=== PATIENT | female | born 1965 | race American Indian/Alaskan Native ===

== ENCOUNTER 2021-02-19 09:49 | Outpatient (CLI) | payer OTHER ==
--- NOTE | 2021-02-19 11:36 | XRay Report ---
LUMBAR SPINE 3 VIEWS INDICATION / CLINICAL INFORMATION: BACK PAIN. COMPARISON: None available. FINDINGS: VERTEBRAE: No acute fracture. No significant malalignment. DISC SPACES / FACET JOINTS:Mild degenerative disc disease of L5-S1. PARASPINAL SOFT TISSUES:No significant abnormality. ADDITIONAL FINDINGS: Incidentally noted calcification within the pelvis, likely representing a degene rating fibroid. Signer Name: Roque Delgadillo DO Signed: 02/19/2021 11:31 AM Workstation Name: [id number]
--- NOTE | 2021-02-19 11:37 | XRay Report ---
XR hip 2-3V LT INDICATION / CLINICAL INFORMATION: LEFT HIP PAIN. COMPARISON: None available. FINDINGS: No acute fracture. Normal alignment. Joint spaces are preserved. No destructive osseous lesion or s uspicious periosteal reaction. Impression: 1.No significant osseous abnormality. Signer Name: Chad Cohen MD Signed: 02/19/2021 11:33 AM Workstation Name: [email or web address]
--- NOTE | 2021-02-19 11:46 | XRay Report ---
BILATERAL KNEE 2 VIEW(S) INDICATION / CLINICAL INFORMATION: BILATERAL KNEE PAIN COMPARISON: None available. FINDINGS: BONES / JOINT(S): No acute fracture or subluxation. 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 SOFT TISSUES: No significant abnormality. ADDITIONAL FINDINGS: None. Signer Name: Roque Delgadillo DO Signed: 02/19/2021 11:41 AM Workstation Name: [id number]
== END 2021-02-19 09:50 | disposition home or self-care (01) ==
LOC: XRAY 09:49
PROVIDERS: ATTEND Internal Medicine
DX: M17.0 Bilateral primary osteoarthritis of knee (principal); M47.817 Spondylosis without myelopathy or radiculopathy, lumbosacral region; M25.552 Pain in left hip
CPT/HCPCS: 72100